=== PATIENT | male | born 1975 | race Caucasian/White ===

== ENCOUNTER 2017-07-18 12:52 | Emergency (ER) | payer OTHER ==
[~2017-07-18] VITALS: Ht 177.8 cm; Wt 83.5 kg
[2017-07-18 12:59] VITALS: BP 152/96
== END 2017-07-18 13:50 | disposition home or self-care (01) ==
LOC: ED 12:52
DX: Z76.0 Encounter for issue of repeat prescription (principal); F41.9 Anxiety disorder, unspecified; F32.9 Major depressive disorder, single episode, unspecified

== ENCOUNTER 2017-10-09 01:57 | Inpatient (IN) | payer OTHER ==
[~2017-10-09] VITALS: Ht 177.8 cm; Wt 87.6 kg
[2017-10-09 03:25] LABS: PLATELET COUNT 151 x10^3mcL (130-400); RED CELL DISTRIBUTION WIDTH 13.8 % (11.5-14.5)
[2017-10-09 04:04] LABS: BILIRUBIN TOTAL 0.21 mg/dL (0.20-1.00); CALCIUM 9.4 mg/dL (8.5-10.1); CARBON DIOXIDE 25.4 mmol/L (21-32); CREATININE SERUM 2.4 mg/dL (0.7-1.3); POTASSIUM SERUM 4.2 mmol/L (3.5-5.1)
[2017-10-09 04:05] LABS: ALBUMIN 2.3 g/dL (3.4-5.0); TOTAL PROTEIN, SERUM 6.1 g/dL (6.4-8.2)
[2017-10-09] MEDS ORDERED: SEROQUEL50 M1 PO (05:32)
[2017-10-09] MEDS ORDERED: CYMBALTA30 M1 PO ×2 (05:33→07:37)
[2017-10-09] MEDS ORDERED: METFORMIN HCL500 MG PO (05:34)
[2017-10-09] MEDS ORDERED: DIVALPROEX SOD500 M3 PO (05:34)
[2017-10-09] MEDS ORDERED: HALOPERIDOL10 MG PO ×2 (07:35→07:36)
[2017-10-09] MEDS ORDERED: VITAMIN D50000 I4 PO (07:36)
[2017-10-09] MEDS ORDERED: METFORMIN HYDR500 M1 PO (07:37)
[2017-10-09] MEDS ORDERED: GOOD SENSE OMEP20 MG PO (07:37)
[2017-10-09] MEDS ORDERED: GOOD SENSE ASPI81 M3 PO (07:37)
[2017-10-09] MEDS ORDERED: GABAPENTIN100 M2 PO (07:38)
[2017-10-09 07:51] LABS: UA SPECIFIC GRAVITY 1.015 (1.005-1.035); microscopic required? YES; urine erythrocyte TRACE (NEGATIVE)
[2017-10-09 08:05] LABS: AMPHETAMINE QUAL UR NONE DETECTED (NEG <=1000)
[2017-10-09 08:15] LABS: T3 TOTAL 0.57 ng/mL
[2017-10-09 08:17] LABS: FREE T4 0.46 ng/dL (0.76-1.46); T4(THYROXINE) 2.8 ug/dL (4.7-13.3)
[2017-10-09 08:18] LABS: CHOLESTEROL/HDL RATIO 1.9; MAGNESIUM 2.7 mg/dL (1.8-2.4); PHOSPHOROUS 4.9 mg/dL (2.5-4.9)
[2017-10-09 10:33] VITALS: BP 172/64
[2017-10-09 17:10] VITALS: BP 144/82
[2017-10-09 22:00] VITALS: BP 140/67
[2017-10-10 05:00] VITALS: BP 152/78
[2017-10-10 07:30] LABS: BASOPHIL % 0.2 % (0-2); RED CELL DISTRIBUTION WIDTH 14.4 % (11.5-14.5)
[2017-10-10 07:41] LABS: BILIRUBIN TOTAL 0.3 mg/dL (0.20-1.00); CALCIUM 9.3 mg/dL (8.5-10.1); POTASSIUM SERUM 4.5 mmol/L (3.5-5.1)
[2017-10-10 07:42] LABS: ALBUMIN 2.2 g/dL (3.4-5.0); TOTAL PROTEIN, SERUM 5.6 g/dL (6.4-8.2)
[2017-10-10 07:59] LABS: PLATELET COUNT 112 x10^3mcL (130-400)
[2017-10-10 08:23] VITALS: BP 167/90
[2017-10-10 12:35] VITALS: BP 186/86
[2017-10-10 17:26] VITALS: BP 148/84
[2017-10-10 20:57] VITALS: BP 157/90
[2017-10-11 05:34] VITALS: BP 160/87
[2017-10-11 07:19] LABS: BASOPHIL % 0.4 % (0-2); RED CELL DISTRIBUTION WIDTH 13.9 % (11.5-14.5)
[2017-10-11 07:20] LABS: PLATELET COUNT 75 x10^3mcL (130-400)
[2017-10-11 07:36] VITALS: BP 142/78
[2017-10-11 07:39] LABS: CARBON DIOXIDE 29.6 mmol/L (21-32)
[2017-10-11 14:59] VITALS: BP 135/69
[2017-10-11 16:20] VITALS: BP 147/84
[2017-10-11] MEDS ORDERED: METHOCARBAMOL500 MG PO (17:22)
[2017-10-11] MEDS ORDERED: METOPROLOL TART25 M1 PO (17:23)
[2017-10-11] MEDS ORDERED: LAC30L PO (17:27)
[2017-10-11] MEDS ORDERED: GLIPIZIDE5 M2 PO (18:48)
[2017-10-11 19:57] VITALS: BP 147/84
[2017-10-11 20:14] VITALS: Ht 177.8 cm; Wt 87.6 kg
[2017-10-11 20:30] VITALS: BP 145/84
[2017-10-12] MEDS ORDERED: SEROQUEL50 M1 PO (05:28)
== END 2017-10-11 21:00 | disposition home or self-care (01) | DRG 812 ==
LOC: ED 01:57 → DU 05:12
PROVIDERS: Emergency Medicine; Student in an Organized Health Care Education/Training Program
DX: T42.6X2A Poisoning by other antiepileptic and sedative-hypnotic drugs, intentional self-harm, initial encounter (principal); N17.0 Acute kidney failure with tubular necrosis; E43 Unspecified severe protein-calorie malnutrition; N18.4 Chronic kidney disease, stage 4 (severe); R45.851 Suicidal ideations; D69.6 Thrombocytopenia, unspecified; E11.65 Type 2 diabetes mellitus with hyperglycemia; I12.9 Hypertensive chronic kidney disease with stage 1 through stage 4 chronic kidney disease, or unspecified chronic kidney disease; G89.29 Other chronic pain; M54.9 Dorsalgia, unspecified; Z53.29 Procedure and treatment not carried out because of patient's decision for other reasons; E83.42 Hypomagnesemia; F17.200 Nicotine dependence, unspecified, uncomplicated; F31.64 Bipolar disorder, current episode mixed, severe, with psychotic features; Z88.5 Allergy status to narcotic agent; Z88.6 Allergy status to analgesic agent; Y92.89 Other specified places as the place of occurrence of the external cause; Z68.27 Body mass index [BMI] 27.0-27.9, adult
CPT/HCPCS: 82962; 83880; 84439; G0480; J2405; J3490; J7030; J7040; J7042; Q0092

== ENCOUNTER 2018-01-08 14:08 | Emergency (ER) | payer OTHER ==
[~2018-01-08] VITALS: Ht 180.3 cm; Wt 81.6 kg
[~2018-01-08 14:08] MED LIST: CYMBALTA30 M1 PO; DIVALPROEX SOD500 M3 PO; GABAPENTIN100 M2 PO; GLIPIZIDE5 M2 PO; GOOD SENSE ASPI81 M3 PO; GOOD SENSE OMEP20 MG PO; HALOPERIDOL10 MG PO; LAC30L PO; METFORMIN HCL500 MG PO; METFORMIN HYDR500 M1 PO; METHOCARBAMOL500 MG PO; METOPROLOL TART25 M1 PO; SEROQUEL50 M1 PO; VITAMIN D50000 I4 PO
[2018-01-08 14:20] VITALS: BP 137/92; Ht 180.3 cm; Wt 81.6 kg
== END 2018-01-08 16:08 | disposition home or self-care (01) ==
LOC: ED 14:08
DX: J34.0 Abscess, furuncle and carbuncle of nose (principal); Z88.6 Allergy status to analgesic agent; Z88.5 Allergy status to narcotic agent
CPT/HCPCS: 82962

== ENCOUNTER 2018-04-13 09:49 | Emergency (ER) | payer OTHER ==
[~2018-04-13] VITALS: Ht 177.8 cm; Wt 81.6 kg
[2018-04-13 09:56] VITALS: Ht 177.8 cm; Wt 81.6 kg
[2018-04-13 10:58] LABS: BASOPHIL % 1.4 % (0-2); PLATELET COUNT 281 x10^3mcL (130-400); RED CELL DISTRIBUTION WIDTH 13.2 % (11.5-14.5)
[2018-04-13 10:59] LABS: CALCIUM 10.1 mg/dL (8.5-10.1); CARBON DIOXIDE 22.3 mmol/L (21-32); CREATININE SERUM 2.2 mg/dL (0.7-1.3); POTASSIUM SERUM 4.1 mmol/L (3.5-5.1)
[2018-04-13 11:13] VITALS: BP 148/93
[2018-04-13 12:29] LABS: PHOSPHOROUS 2.9 mg/dL (2.5-4.9)
[2018-04-13 12:31] LABS: T3 TOTAL 0.97 ng/mL
[2018-04-13 12:34] LABS: FREE T4 1.12 ng/dL (0.76-1.46); FREE THYROXINE INDEX 2.7 ug/dL (1.4-4.5)
[2018-04-13 12:35] LABS: CHOLESTEROL/HDL RATIO 4.5
== END 2018-04-13 11:29 | disposition left against medical advice (07) ==
LOC: ED 09:49 → DU 10:59 → ED 10:59
PROVIDERS: Emergency Medicine; Internal Medicine
PROC: 3E033GC Introduction of Other Therapeutic Substance into Peripheral Vein, Percutaneous Approach (ICD-10-PCS; principal; 2018-04-13)
DX: R07.89 Other chest pain (principal); E11.9 Type 2 diabetes mellitus without complications; I10 Essential (primary) hypertension; F17.210 Nicotine dependence, cigarettes, uncomplicated; F12.10 Cannabis abuse, uncomplicated; F32.9 Major depressive disorder, single episode, unspecified
CPT/HCPCS: 83880; 84439; J3010; J7030; Q0092

== ENCOUNTER 2018-04-21 07:50 | Emergency (ER) | payer OTHER ==
[~2018-04-21] VITALS: Ht 177.8 cm; Wt 69.4 kg
[2018-04-21 08:02] VITALS: Ht 177.8 cm; Wt 69.4 kg
[2018-04-21 08:20] VITALS: BP 178/84
[2018-04-21 08:52] LABS: BASOPHIL % 0.6 % (0-2); PLATELET COUNT 260 x10^3mcL (130-400); RED CELL DISTRIBUTION WIDTH 13.2 % (11.5-14.5)
[2018-04-21 09:02] LABS: CALCIUM 9.4 mg/dL (8.5-10.1); CARBON DIOXIDE 22.3 mmol/L (21-32); CREATININE SERUM 2.4 mg/dL (0.7-1.3); POTASSIUM SERUM 4.1 mmol/L (3.5-5.1)
[2018-04-21 09:07] LABS: BILIRUBIN TOTAL 0.3 mg/dL (0.20-1.00); TOTAL PROTEIN, SERUM 7.3 g/dL (6.4-8.2)
[2018-04-21 09:09] LABS: ALBUMIN 3.3 g/dL (3.4-5.0)
== END 2018-04-21 10:17 | disposition left against medical advice (07) ==
LOC: ED 07:50
PROVIDERS: Emergency Medicine
DX: R06.00 Dyspnea, unspecified (principal); G89.29 Other chronic pain; M54.9 Dorsalgia, unspecified; F17.210 Nicotine dependence, cigarettes, uncomplicated; E11.9 Type 2 diabetes mellitus without complications; R53.1 Weakness; R11.2 Nausea with vomiting, unspecified; R07.89 Other chest pain; Z88.5 Allergy status to narcotic agent
CPT/HCPCS: 83880; 99406; J2930; J7030; J7613; Q0092